=== PATIENT | female | born 1955 | race Caucasian/White ===

== ENCOUNTER 2019-11-10 09:28 | Observation (INO) | payer BC ==
[2019-11-10] MEDS ORDERED: ASPIRIN 81 MG PO STA (09:45)
[2019-11-10 10:06] LABS: Basophils % (A) 1 %; Eosinophils # (A) 0.2 k/uL (0-0.7); Eosinophils % (A) 3 %; HCT 44.4 % (34.0-46.0); Lymphocytes # (A) 1.6 k/uL (1.0-4.8); Lymphocytes % (A) 28 %; MCH 30.5 pg (25.0-35.0); MCHC 33.8 g/dL (31.0-37.0); MCV 90.3 fL (80.0-100.0); Mean Platelet Volume 7.5; Monocytes # (A) 0.4 k/uL (0-1.0); Monocytes % (A) 6 %; Neutrophils # (A) 3.5 k/uL (1.3-7.7); Neutrophils % (A) 60 %; Platelet Count 205 k/uL (150-450); RBC 4.92 m/uL (3.80-5.40); RDW 12.6 % (11.5-15.5); WBC 5.9 k/uL (3.8-10.6)
--- NOTE | 2019-11-10 10:09 | ED ---
Chest Pain HPI - General Chief Complaint: Chest Pain Stated Complaint: chest pain Time Seen by Provider: 11/10/19 09:37 Source: patient, RN notes reviewed Mode of arrival: ambulatory Limitations: no limitations - History of Present Illness Initial Comments: 64-year-old female presents emergency Department chief complaint of chest pain or shortness of breath. Patient states that she woke up this morning weak,rundown. Patient states that she started walking around became very dyspneic states that she started having chest pain and pressure. Patient states that symptoms lasted approximately 30 minutes. Patient states they have now resolved. She doesn't that she had a heart cath 9 years ago with no acute findings. No history of hyperlipidemia diabetes hypertension. Patient states she did have slight nausea. Patient offers no complaints. Patient does take Synthroid for hypo-thyroidism. - Related Data Allergies Allergy/AdvReac Type Severity Reaction Status Date / Time ibuprofen Allergy Nausea & Verified 11/10/19 09:33 Vomiting Review of Systems ROS Statement: Those systems with pertinent positive or pertinent negative responses have been documented in the HPI. ROS Other: All systems not noted in ROS Statement are negative. Past Medical History Past Medical History: Thyroid Disorder History of Any Multi-Drug Resistant Organisms: None Reported Past Surgical History: Joint Replacement, Orthopedic Surgery Past Psychological History: No Psychological Hx Reported Smoking Status: Never smoker Past Alcohol Use History: Occasional Past Drug Use History: None Reported General Exam Limitations: no limitations General appearance: alert, in no apparent distress Head exam: Present: atraumatic, normocephalic, normal inspection Eye exam: Present: normal appearance, PERRL, EOMI. Absent: scleral icterus, conjunctival injection, periorbital swelling ENT exam: Present: normal exam, normal oropharynx, mucous membranes moist Neck exam: Present: normal inspection, full ROM. Absent: tenderness, meningismus, lymphadenopathy Respiratory exam: Present: normal lung sounds bilaterally. Absent: respiratory distress, wheezes, rales, rhonchi, stridor Cardiovascular Exam: Present: regular rate, normal rhythm, normal heart sounds. Absent: systolic murmur, diastolic murmur, rubs, gallop, clicks GI/Abdominal exam: Present: soft, normal bowel sounds. Absent: distended, tenderness, guarding, rebound, rigid Back exam: Absent: CVA tenderness (R), CVA tenderness (L) Neurological exam: Present: alert, oriented X3 Skin exam: Present: warm, dry, intact, normal color. Absent: rash Course Vital Signs 11/10/19 11/10/19 11/10/19 09:31 09:54 09:57 Temperature 97.7 F Pulse Rate 53 L 55 L Pulse Rate [ 62 Director Immunology ] Respiratory 18 16 Rate Blood Pressure 128/79 141/81 O2 Sat by Pulse 99 100 Oximetry Chest Pain MDM - MDM 62-year-old presented for chest pain. Patient symptoms resolved prior arrival though she developed some symptoms. Patient lab, EKG reviewedabnormality. Patient be admitted for cardiac observation with cardiology consult. Disposition Clinical Impression: Chest pain Disposition: ADMITTED IP TO THIS HOSP Condition: Stable Referrals: Izzy Mcintosh DO [Primary Care Provider] - 1-2 days
--- NOTE | 2019-11-10 10:10 | XR ---
EXAMINATION TYPE: XR chest 2V DATE OF EXAM: 11/10/2019 COMPARISON: NONE HISTORY: Chest pain. TECHNIQUE: Frontal and lateral views of the chest are obtained. FINDINGS: There is no focal air space opacity, pleural effusion, or pneumothorax seen. The cardiac silhouette size is within normal limits. Multilevel spurring of thoracic spine. Overlying EKG leads a re seen. IMPRESSION: No acute cardiopulmonary process.
[2019-11-10 10:15] LABS: ALT 13 U/L (4-34); AST 22 U/L (14-36); African American GFR (CKD) >90 (>60 ml/min/1.73 sqM); Albumin 4.3 g/dL (3.5-5.0); Alkaline Phosphatase 66 U/L (38-126); Anion Gap 6 mmol/L; Blood Urea Nitrogen 10 mg/dL (7-17); Calcium 9.2 mg/dL (8.4-10.2); Carbon Dioxide 27 mmol/L (22-30); Chloride 105 mmol/L (98-107); Glucose 87 mg/dL (74-99); Magnesium 2.2 mg/dL (1.6-2.3); Non-African American GFR(CKD) >90 (>60 ml/min/1.73 sqM); Potassium 4.1 mmol/L (3.5-5.1); Sodium 138 mmol/L (137-145); Total Bilirubin 1.1 mg/dL (0.2-1.3)
[2019-11-10 10:19] LABS: D-Dimer 0.25 mg/L FEU (<0.60); Partial Thromboplastin Time 24.2 sec (22.0-30.0)
[2019-11-10] MEDS ORDERED: NITROGLYCERIN SL TABS 0.4 MG TAB SUBLINGUAL PRN (11:23)
[2019-11-10] MEDS ORDERED: HEPARIN SODIUM,PORCINE 5,000 UNIT/ML 1 ML VIAL IV ONE (11:23)
[2019-11-10] MEDS ORDERED: HEPARIN SODIUM,PORCINE 5,000 UNIT/ML 1 ML VIAL IV PRN (11:23)
[2019-11-10] MEDS ORDERED: HEPARIN SOD,PORK IN 0.45% NACL 25,000 UNIT in 0.45% NACL 1 250ML.BAG IV SCH (11:30)
--- NOTE | 2019-11-10 13:29 | P.CRDCN ---
History of Present Illness Consult date: 11/10/19 History of present illness: CHIEF COMPLAINT: chest pain HISTORY OF PRESENT ILLNESS: This is a 64-year old female with a past medical history significant for hypothyroidism. Patient does not follow in the office with a chip washer. We have been asked to see the patient in consultation for chest pain. Patient examined at the bedside. Patient states she woke up this morning with midsternal chest pain. She describes it as a dull ache. She states she initially thought maybe she slept wrong and did some stretches in the bed. She states she continued with her morning routine and noticed the pain did not go away. She denies radiation to her jaw or arm. She denies shortness of breath. Denies nausea or vomiting. Denies lightheadedness or dizziness. She reports feel weak this morning as well. She reports having a cardiac cath in 2010 at [facility] and did not require any stents. DIAGNOSTICS: EKG reveals sinus bradycardia Chest xray negative for acute process. Laboratory data: WBC 5.9. Hemoglobin 15.0. platelet count 205. d-dimer 0.25. Sodium 138. Potassium 4.1. BUN 10. Creatinine 0.61. Magnesium 2.2. troponin negative 2. BNP 115 Current home cardiac medications include: none REVIEW OF SYSTEMS: At the time of my exam: CONSTITUTIONAL: Denies fever or chills. HEENT: Denies blurred vision, vision changes, or eye pain. Denies hemoptysis CARDIOVASCULAR: Denies chest pain, orthopnea, PND or palpitations RESPIRATORY: No shortness of breath. GASTROINTESTINAL: Denies abdominal pain. Denies nausea or vomiting. HEMATOLOGIC: Denies bleeding disorders. GENITOURINARY: Denies any blood in urine. SKIN: Denies pruitis. Denies rash. PHYSICAL EXAM: VITAL SIGNS: Reviewed. GENERAL: Well-developed in no acute distress. HEENT: Head is normocephalic. Pupils are equal, round. Sclerae anicteric. Mucous membranes of the mouth are moist. Neck supple. No JVD or thyromegaly LUNGS: Respirations even and unlabored. Lungs essentially clear to auscultation bilaterally. HEART: Regular rate and rhythm. S1 and S2 heard. ABDOMEN: Soft. Nondistended. Nontender. EXTREMITIES: Normal range of motion. No clubbing or cyanosis. Peripheral pulses intact. No lower extremity edema NEUROLOGIC: Awake and alert. Oriented x 3. ASSESSMENT: Chest pain Hypothyroidism Obesity: BMI 30.5 History of nicotine dependence, in remission PLAN: An acute coronary event has been ruled out Decrease aspirin to 81mg daily Discontinue IV heparin Obtain 2D echo to assess cardiac structure and function Obtain cath report from [facility] Reshma NPO at midnight. Possible stress test tomorrow. Nurse practitioner note has been reviewed by physician. Signing provider agrees with the documented findings, assessment, and plan of care. Past Medical History Past Medical History: Chest Pain / Angina, Eye Disorder, GERD/Reflux, Osteoarthritis (OA), Thyroid Disorder Additional Past Medical History / Comment(s): Gastric ulcer, arthritis in mul tiple joints/needs R knee replacement, hypothyroid, bronchitis, macular degeneration R eye, UTIs. History of Any Multi-Drug Resistant Organisms: None Reported Past Surgical History: Heart Catheterization, Joint Replacement, Orthopedic Surgery Additional Past Surgical History / Comment(s): 2010 cardiac cath at [facility], R rotator cuff repair, R knee arthroscopy/meniscus, D&C, EGD, colonoscopy. Past Anesthesia/Blood Transfusion Reactions: Motion Sickness, Postoperative Nausea & Vomiting (PONV) Additional Past Anesthesia/Blood Transfusion Reaction / Comment(s): Pt has clausterphobia Smoking Status: Former smoker - Past Family History Father Family Medical History: Dementia Additional Family Medical History / Comment(s): Father is . Mother Family Medical History: Coronary Artery Disease (CAD), Diabetes Mellitus Additional Family Medical History / Comment(s): Mother is . Medications and Allergies Home Medications Medication Instructions Recorded Confirmed Type Glucosamine/Chondr Luis A Sod [Osteo 1 tab PO DAILY 11/10/19 11/10/19 History Bi-Flex Caplet] Levothyroxine Sodium [Synthroid] 112 mcg PO MOTUWETHFRSA 11/10/19 11/10/19 History Levothyroxine Sodium [Synthroid] 168 mcg PO LUIS 11/10/19 11/10/19 History Vit C/E/Zn/Coppr/Lutein/Zeaxan 1 cap PO DAILY 11/10/19 11/10/19 History [Preservision Areds 2 Softgel] Allergies Allergy/AdvReac Type Severity Reaction Status Date / Time ibuprofen Allergy Nausea & Verified 11/10/19 09:33 Vomiting Physical Exam Vitals: Vital Signs Temp Pulse Pulse Resp BP BP Pulse Ox 11/10/19 12:15 98 F 58 L 16 121/76 97 11/10/19 12:02 57 L 18 120/84 100 11/10/19 09:57 55 L 16 141/81 100 11/10/19 09:54 62 11/10/19 09:31 97.7 F 53 L 18 128/79 99 Intake and Output 11/09/19 11/10/19 11/10/19 22:59 06:59 14:59 Other: Voiding Method Toilet Weight 88.451 kg Results 11/10/19 09:56 11/10/19 09:56 Cardiac Enzymes 11/10/19 11/10/19 11/10/19 Range/Units 09:56 09:56 12:20 AST 22 (14-36) U/L Troponin I <0.012 <0.012 (0.000-0.034) ng/mL Coagulation 11/10/19 Range/Units 09:56 PT 10.0 (9.0-12.0) sec APTT 24.2 (22.0-30.0) sec CBC 11/10/19 Range/Units 09:56 WBC 5.9 (3.8-10.6) k/uL RBC 4.92 (3.80-5.40) m/uL Hgb 15.0 (11.4-16.0) gm/dL Hct 44.4 (34.0-46.0) % Plt Count 205 (150-450) k/uL Comprehensive Metabolic Panel 11/10/19 Range/Units 09:56 Sodium 138 (137-145) mmol/L Potassium 4.1 (3.5-5.1) mmol/L Chloride 105 (98-107) mmol/L Carbon Dioxide 27 (22-30) mmol/L BUN 10 (7-17) mg/dL Creatinine 0.61 (0.52-1.04) mg/dL Glucose 87 (74-99) mg/dL Calcium 9.2 (8.4-10.2) mg/dL AST 22 (14-36) U/L ALT 13 (4-34) U/L Alkaline Phosphatase 66 (38-126) U/L Total Protein 7.0 (6.3-8.2) g/dL Albumin 4.3 (3.5-5.0) g/dL Current Medications Generic Name Dose Route Start Last Admin Trade Name Freq PRN Reason Stop Dose Admin Heparin Sodium (Porcine) 0 unit 11/10/19 11:23 Heparin Sodium,Porcine 5,000 Unit/Ml 1 Ml Vial IV Q6HR PRN Low PTT Protocol Nitroglycerin 0.4 mg 11/10/19 11:23 Nitroglycerin Sl Tabs 0.4 Mg Tab SUBLINGUAL Q5M PRN Chest Pain Intake and Output 11/09/19 11/10/19 11/10/19 22:59 06:59 14:59 Other: Voiding Method Toilet Weight 88.451 kg Patient Weight 11/11/19 06:59 Weight 88.451 kg 11/10/19 09:56 11/10/19 09:56
--- NOTE | 2019-11-10 17:41 | ECHOF ---
Referral Reason:chest pain MEASUREMENTS -------- HEIGHT: 170.2 cm WEIGHT: 88.5 kg BP: RVIDd: 2.9 cm (< 3.3) IVSd: 0.9 cm (0.6 - 1.1) LVIDd: 4.6 cm (3.9 - 5.3) LVPWd: 1.0 cm (0.6 - 1.1) IVSs: 1.6 cm LVIDs: 3.1 cm LVPWs: 1.3 cm Ao Diam: 2.6 cm (2.0 - 3.7) AV Cusp: 2.2 cm (1.5 - 2.6) LA Diam: 3.1 cm (2.7 - 3.8) MV EXCURSION: 12.396 mm (> 18.000) MV EF SLOPE: 95 mm/s (70 - 150) EPSS: 1.1 cm MV E Godwin: 0.65 m/s MV DecT: 126 ms MV A Godwin: 0.39 m/s MV E/A Ratio: 1.65 RAP: 5.00 mmHg RVSP: 16.37 mmHg FINDINGS -------- This was a technically good study. The left ventricular size is normal. Left ventricular wall thickness is normal. Overall left vent ricular systolic function is normal with, an EF between 55 - 60 %. The right ventricle is normal in size. The left atrial size is normal. The right atrial size is normal. The aortic valve is trileaflet and appears structurally normal. The mitral valve is normal. Mild mitral regurgitation is present. The tricuspid valve appears structurally normal. Trace tricuspid regurgitation present. Right willian tricular systolic pressure is normal at < 35 mmHg. There is no pulmonic regurgitation present. The aortic root size is normal. Normal inferior vena cava with normal inspiratory collapse consistent with estimated right atrial pre ssure of 5 mmHg. There is no pericardial effusion. CONCLUSIONS -------- 1. The left ventricular size is normal. 2. Left ventricular wall thickness is normal. 3. Overall left ventricular systolic function is normal with, an EF between 55 - 60 %. 4. Mild mitral regurgitation is present. 5. Trace tricuspid regurgitation present. 6. There is no pericardial effusion. CONSUMER MARKETING MANAGER: Valentina Lawson RDCS
[2019-11-11 06:58] LABS: Mean Platelet Volume 7.5; Platelet Count 178 k/uL (150-450)
[2019-11-11 07:06] LABS: Cholesterol 175 mg/dL (<200); HDL Cholesterol 56 mg/dL (40-60); LDL Cholesterol,Calculated 100 mg/dL (0-99); Triglycerides 97 mg/dL (<150)
[2019-11-11 07:56] VITALS: RESP 16; TEMP 97.6
[2019-11-11] MEDS ORDERED: ACETAMINOPHEN TAB 325 MG TAB PO PRN (08:25)
[2019-11-11] MEDS ORDERED: DOBUTamine DRIP for NUC MED 500 MG in DEXTROSE/WATER 1 250ML.BAG IV ONE (08:30)
[2019-11-11] MEDS ORDERED: ASPIRIN 325 MG TAB PO SCH (09:00)
[2019-11-11] MEDS ORDERED: ASPIRIN 81 MG PO SCH (09:00)
--- NOTE | 2019-11-11 12:55 | P.HPIM ---
History of Present Illness 64-year-old pleasant female came in with compensative chest pain in the midsternal area started today morning which is a dull aching kind of pain. Patient the denied any shortness of breath lightheadedness diaphoresis nausea patient says she is chest pain-free after that episode patient pain lasted for only a few minutes. Denied any radiation. Chest chest pressure-like sensation is [id number] chest pain is nonpleuritic not associated with food food patient had a stress test about 8 years ago which was within normal limits as per the patient patient to did have cardiac cath in 2010 which did not require any stents. Review of Systems REVIEW OF SYSTEMS: CONSTITUTIONAL: No fever, no malaise, no fatigue. HEENT: No recent visual problems or hearing problems. Denied any sore throat. CARDIOVASCULAR: No orthopnea, PND, no palpitations, no syncope. PULMONARY: No shortness of breath, no cough, no hemoptysis. GASTROINTESTINAL: No diarrhea, no nausea, no vomiting, no abdominal pain. NEUROLOGICAL: No headaches, no weakness, no numbness. HEMATOLOGICAL: Denies any bleeding or petechiae. GENITOURINARY: Denies any burning micturition, frequency, or urgency. MUSCULOSKELETAL/RHEUMATOLOGICAL: Denies any joint pain, swelling, or any muscle pain. ENDOCRINE: Denies any polyuria or polydipsia. The rest of the 14-point review of systems is negative. Past Medical History Past Medical History: Chest Pain / Angina, Eye Disorder, GERD/Reflux, Os teoarthritis (OA), Thyroid Disorder Additional Past Medical History / Comment(s): Gastric ulcer, arthritis in multiple joints/needs R knee replacement, hypothyroid, bronchitis, macular degeneration R eye, UTIs. History of Any Multi-Drug Resistant Organisms: None Reported Past Surgical History: Heart Catheterization, Joint Replacement, Orthopedic Surgery Additional Past Surgical History / Comment(s): 2011 cardiac cath at [facility], R rotator cuff repair, R knee arthroscopy/meniscus, D&C, EGD, colonoscopy. Past Anesthesia/Blood Transfusion Reactions: Motion Sickness, Postoperative Nausea & Vomiting (PONV) Additional Past Anesthesia/Blood Transfusion Reaction / Comment(s): Pt has clausterphobia Smoking Status: Former smoker - Past Family History Father Family Medical History: Dementia Additional Family Medical History / Comment(s): Father is . Mother Family Medical History: Coronary Artery Disease (CAD), Diabetes Mellitus Additional Family Medical History / Comment(s): Mother is . Medications and Allergies Home Medications Medication Instructions Recorded Confirmed Type Glucosamine/Chondr Luis A Sod [Osteo 1 tab PO DAILY 11/10/19 11/10/19 History Bi-Flex Caplet] Levothyroxine Sodium [Synthroid] 112 mcg PO MOTUWETHFRSA 11/10/19 11/10/19 History Levothyroxine Sodium [Synthroid] 168 mcg PO LUIS 11/10/19 11/10/19 History Vit C/E/Zn/Coppr/Lutein/Zeaxan 1 cap PO DAILY 11/10/19 11/10/19 History [Preservision Areds 2 Softgel] Allergies Allergy/AdvReac Type Severity Reaction Status Date / Time ibuprofen Allergy Nausea & Verified 11/10/19 09:33 Vomiting Physical Exam Vitals: Vital Signs Temp Pulse Resp BP Pulse Ox 11/11/19 09:00 16 11/11/19 07:55 97.6 F 53 L 16 110/68 98 11/11/19 03:00 97.8 F 67 17 114/72 96 11/10/19 20:41 97.6 F 64 18 113/71 98 11/10/19 16:15 98.1 F 66 16 120/98 97 11/10/19 15:00 16 Intake and Output 11/10/19 11/11/19 11/11/19 22:59 06:59 14:59 Intake Total 320 Balance 320 Intake: Oral 320 Other: Voiding Method Toilet Toilet Toilet # Voids 1 3 1 PHYSICAL EXAMINATION: GENERAL: The patient is alert and oriented x3, not in any acute distress. Well developed, well nourished. HEENT: Pupils are round and equally reacting to light. EOMI. No scleral icterus. No conjunctival pallor. Normocephalic, atraumatic. No pharyngeal erythema. No thyromegaly. CARDIOVASCULAR: S1 and S2 present. No murmurs, rubs, or gallops. PULMONARY: Chest is clear to auscultation, no wheezing or crackles. ABDOMEN: Soft, nontender, nondistended, normoactive bowel sounds. No palpable organomegaly. MUSCULOSKELETAL: No joint swelling or deformity. EXTREMITIES: No cyanosis, clubbing, or pedal edema. NEUROLOGICAL: Gross neurological examination did not reveal any focal deficits. SKIN: No rashes. Results CBC & Chem 7: 11/11/19 06:36 11/10/19 09:56 Labs: Abnormal Lab Results - Last 24 Hours (Table) 11/10/19 11/11/19 Range/Units 12:20 06:36 APTT 127.9 H* (22.0-30.0) sec LDL Cholesterol, Calc 100 H (0-99) mg/dL Thrombosis Risk Factor Assmnt - Choose All That Apply Any of the Below Risk Factors Present?: Yes Each Factor Represents 1 point: Obesity (BMI >25) Other Risk Factors: Yes Each Risk Factor Represents 2 Points: Age 61-74 years Other congenital or acquired thrombophilia - If yes, enter type in comment: No Thrombosis Risk Factor Assessment Total Risk Factor Score: 3 Thrombosis Risk Factor Assessment Level: Moderate Risk Assessment and Plan Plan: -Chest pain: We will rule out acute coronary syndromes, unstable angina. Patient was a evaluated by cardiology and patient is undergoing stress test if that's negative patient will be discharged today. -Hypothyroidism -Obesity -Gastroesophageal reflux disease Plan: Ruled out acute coronary syndromes patient will undergo stress test if that's negative will be discharged today
[2019-11-11] MEDS ORDERED: LEVOTHYROXINE 112 MCG TAB PO SCH (13:15)
[2019-11-11 15:31] VITALS: BP 117/72; PULSE 68
--- NOTE | 2019-11-12 09:49 | ECHOS ---
STRESS ECHOCARDIOGRAM DOBUTAMINE STRESS ECHOCARDIOGRAM: LUMASON: Vial INDICATIONS: Chest pain. MEDICATIONS: BASELINE HEART RATE: 63 BASELINE BLOOD PRESSURE: 102/59 MAXIMUM HEART RATE: 143 MAXIMUM BLOOD PRESSURE: 213/103 85% MPHR: 134 100% MPHR: 158 METS: N/A MAXIMUM STAGE REACHED: 30 mcg TOTAL EXERCISE TIME: 8:59 CLINICAL INFORMATION: Baseline EKG shows sinus rhythm, normal axis, normal intervals. The patient was given intravenous dobutamine over a period of 9 minutes, achieving 85% of predicted maximal heart rate without chest pain or diagnostic ST-segment depression. Baseline echo shows normal left ventricular size, wall motion and systolic function. Post dobutamine infusion there is normal hyperdynamic response of all segments of myocardium noted. CONCLUSIONS: 1. Negative stress test by EKG criteria. 2. Negative dobutamine echo. MMODL / IJN: [id number] /
== END 2019-11-11 17:44 | disposition home or self-care (01) ==
LOC: EC 09:28 → 3NCARDOBS 10:55
PROVIDERS: ADMIT Hospitalist; ATTEND Hospitalist
DX: R07.89 Other chest pain (principal); R07.2 Precordial pain; R53.1 Weakness; R06.02 Shortness of breath; R06.00 Dyspnea, unspecified; K21.9 Gastro-esophageal reflux disease without esophagitis; M19.90 Unspecified osteoarthritis, unspecified site; E03.9 Hypothyroidism, unspecified; H35.30 Unspecified macular degeneration; E66.9 Obesity, unspecified; F17.201 Nicotine dependence, unspecified, in remission; Z68.30 Body mass index [BMI] 30.0-30.9, adult; Z87.09 Personal history of other diseases of the respiratory system; Z87.440 Personal history of urinary (tract) infections; Z96.651 Presence of right artificial knee joint; Z87.11 Personal history of peptic ulcer disease; Z79.899 Other long term (current) drug therapy; Z79.890 Hormone replacement therapy; Z88.8 Allergy status to other drugs, medicaments and biological substances; Z82.49 Family history of ischemic heart disease and other diseases of the circulatory system; Z83.3 Family history of diabetes mellitus; Z81.8 Family history of other mental and behavioral disorders; R11.0 Nausea
CPT/HCPCS: 93005 ×2; 96366; 96376; 96365; 99285; 36415; 93306; 93351; 85379; 83880; 80061; 80053; 83690; 83735; 84484; 85025; 85049; 85610; 85730 ×2; 71046; G0378 ×2; J1250; J1644 ×2

== ENCOUNTER → 2023-12-11 | Outpatient (CLI) | payer BC ==
[2023-12-11 15:26] LABS: Basophils # (A) 0.03 X 10*3/uL (0.00-0.10); Basophils % (A) 0.4 %; Eosinophils # (A) 0.18 X 10*3/uL (0.04-0.35); Eosinophils % (A) 2.5 %; HCT 46.4 % (37.2-46.3); HGB 14.9 g/dL (12.0-15.0); Lymphocytes # (A) 1.85 X 10*3/uL (0.90-5.00); Lymphocytes % (A) 25.7 %; MCH 29.9 pg (27.0-32.0); MCHC 32.1 g/dL (32.0-37.0); MCV 93.2 FL (80.0-97.0); Mean Platelet Volume 10.3 FL (9.5-12.2); Monocytes # (A) 0.58 X 10*3/uL (0.20-1.00); Monocytes % (A) 8.1 %; NRBC Per 100 WBC 0 X 10*3/uL (0.00-0.01); Neutrophils # (A) 4.53 X 10*3/uL (1.80-7.70); Platelet Count 246 X 10*3/uL (140-440); RBC 4.98 X 10*6/uL (4.10-5.20); RDW 13.3 % (11.5-14.5); WBC 7.19 X 10*3/uL (4.50-10.00)
[2023-12-11 16:29] LABS: ALT 13 U/L (8-44); AST 19 U/L (13-35); Albumin 4.3 g/dL (3.8-4.9); Albumin/Globulin Ratio 1.72 Ratio (1.60-3.17); Alkaline Phosphatase 81 U/L (41-126); BUN/Creat Ratio 11.83 Ratio (12.00-20.00); Blood Urea Nitrogen 7.1 mg/dL (9.0-27.0); Calcium 9.4 mg/dL (8.7-10.3); Carbon Dioxide 26.6 mmol/L (21.6-31.8); Chloride 102 mmol/L (96-109); Chol/HDL Ratio 3.68 Ratio; Globulin 2.5 g/dL (1.6-3.3); Glucose 90 mg/dL (70-110); Sodium 139 mmol/L (135-145); Total Bilirubin 0.8 mg/dL (0.3-1.2); Total Protein 6.8 g/dL (6.2-8.2)
== END | disposition home or self-care (01) ==
LOC: LABWHC1 09:00
PROVIDERS: ATTEND Physician Assistant
CPT/HCPCS: 36415; 80053; 80061; 83036; 84439; 84443; 85025

== ENCOUNTER 2024-02-28 12:23 | Emergency (ER) | payer MEDICARE ==
[2024-02-28 12:31] VITALS: RESP 18
--- NOTE | 2024-02-28 13:32 | ED ---
General Adult HPI - General Chief complaint: Chest Pain Stated complaint: tightness in chest/dry mouth/nausea Time Seen by Provider: 02/28/24 12:30 Source: patient, RN notes reviewed, old records reviewed Mode of arrival: ambulatory Limitations: no limitations - History of Present Illness Initial comments: This is a 68-year-old female who presents to the emergency department stating that for a week she has been having some mild chest tightness on and off. Patient states this morning while she was in the shower she started getting the chest tightness again and some a little electrical feeling. Patient states she was very dry in the mouth at that point and felt mildly nauseous. Patient states the symptoms have resolved at this point. Patient denies any actual chest pain. Patient denies short of breath or recent fever chills or cough. Patient has any swelling to legs or calf tenderness. - Related Data Home Medications Medication Instructions Recorded Confirmed Levothyroxine Sodium [Synthroid] 56 mcg PO LYNCH 11/10/19 02/28/24 Levothyroxine Sodium [Synthroid] 112 mcg PO [id number] 11/10/19 02/28/24 Allergies Allergy/AdvReac Type Severity Reaction Status Date / Time ibuprofen Allergy Nausea & Verified 02/28/24 13:25 Vomiting Review of Systems ROS Statement: Those systems with pertinent positive or pertinent negative responses have been documented in the HPI. ROS Other: All systems not noted in ROS Statement are negative. Past Medical History Past Medical History: Chest Pain / Angina, Eye Disorder, GERD/Reflux, Osteoarthritis (OA), Thyroid Disorder Additional Past Medical History / Comment(s): Gastric ulcer, arthritis in multiple joints/needs R knee replacement, hypothyroid, bronchitis, macular degeneration R eye, UTIs. History of Any Multi-Drug Resistant Organisms: None Reported Past Surgical History: Heart Catheterization, Joint Replacement, Orthopedic Surgery Additional Past Surgical History / Comment(s): 2011 cardiac cath at [facility], R rotator cuff repair, R knee arthroscopy/meniscus, D&C, EGD, colonoscopy. Past Anesthesia/Blood Transfusion Reactions: Motion Sickness, Postoperative Nausea & Vomiting (PONV) Additional Past Anesthesia/Blood Transfusion Reaction / Comment(s): Pt has clausterphobia Past Psychological History: No Psychological Hx Reported Smoking Status: Former smoker Past Alcohol Use History: None Reported Past Drug Use History: None Reported - Past Family History Father Family Medical History: Dementia Additional Family Medical History / Comment(s): Father is . Mother Family Medical History: Coronary Artery Disease (CAD), Diabetes Mellitus Additional Family Medical History / Comment(s): Mother is . General Exam - General Exam Comments Initial Comments: GENERAL: Patient is well-developed and well-nourished. Patient is nontoxic and well- hydrated and is in no acute distress. ENT: Neck is soft and supple. No significant lymphadenopathy is noted. Oropharynx is clear. Moist mucous membranes. Neck has full range of motion without eliciting any pain. EYES: The sclera were anicteric and conjunctiva were pink and moist. Extraocular movements were intact and pupils were equal round and reactive to light. Eye lids were unremarkable. PULMONARY: Unlabored respirations. Good breath sounds bilaterally. No audible rales rhonchi or wheezing was noted. CARDIOVASCULAR: There is a regular rate and rhythm without any murmurs gallops or rubs. ABDOMEN: Soft and nontender with normal bowel sounds. SKIN: Skin is clear with no lesions or rashes and otherwise unremarkable. NEUROLOGIC: Patient is alert and oriented x3. Cranial nerves II through XII are grossly intact. Motor and sensory are also intact. Normal speech, volume and content. Symmetrical smile. MUSCULOSKELETAL: Normal extremities with adequate strength and full range of motion. No lower extremity swelling or edema. No calf tenderness. LYMPHATICS: No significant lymphadenopathy is noted PSYCHIATRIC: Normal psychiatric evaluation. Limitations: no limitations Course Vital Signs 02/28/24 02/28/24 02/28/24 12:27 13:58 14:10 Temperature 98.0 F Pulse Rate 60 66 Pulse Rate [ 66 Launderer Hand ] Respiratory 18 16 Rate Blood Pressure 148/78 112/68 Blood Pressure [Right Arm Sitting] Blood Pressure [Right Arm Standing] Blood Pressure [Right Arm Supine] O2 Sat by Pulse 98 96 Oximetry 02/28/24 02/28/24 02/28/24 14:25 14:45 14:47 Temperature Pulse Rate 67 Pulse Rate [ 62 63 Launderer Hand ] Respiratory 18 Rate Blood Pressure 131/62 Blood Pressure 137/73 [Right Arm Sitting] Blood Pressure [Right Arm Standing] Blood Pressure 134/69 [Right Arm Supine] O2 Sat by Pulse 96 Oximetry 02/28/24 14:49 Temperature Pulse Rate Pulse Rate [ 72 Launderer Hand ] Respiratory Rate Blood Pressure Blood Pressure [Right Arm Sitting] Blood Pressure 130/77 [Right Arm Standing] Blood Pressure [Right Arm Supine] O2 Sat by Pulse Oximetry Medical Decision Making - Medical Decision Making EKG is interpreted by myself. EKG shows sinus bradycardia 59 bpm SC interval 174 QRS is 96 QT interval 396 QTc is 396. Patient's EKG shows no ST segment elevation or depression Was pt. sent in by a medical professional or institution (, [facility], HUMAN RESOURCES BENEFITS ADMINISTRATOR, urgent care, hospital, or senior care...) When possible be specific @ -No Did you speak to anyone other than the patient for history (EMS, parent, family, police, friend...)? What history was obtained from this source @ -No Did you review nursing and triage notes (agree or disagree)? Why? @ -I reviewed and agree with nursing and triage notes Were old charts reviewed (outside hosp., previous admission, EMS record, old EKG, old radiological studies, urgent care reports/EKG's, senior care records)? Report findings @ -No old charts were reviewed Differential Diagnosis? @ -Differential Chest Pain: Stable Angina, Unstable Angina, STEMI, NSTEMI Aortic Dissection, Pneumothorax, Musculoskeletal, Esophageal Spasm GERD, Cholecystitis, Pancreatitis, Zoster, this is not meant to be an all-inclusive list. EKG interpreted by me (3pts min.). @ -As above X-rays interpreted by me (1pt min.). @ -Chest x-ray shows no acute normality CT interpreted by me (1pt min.). @ -None done U/S interpreted by me (1pt. min.). @ -None done What testing was considered but not performed or refused? (CT, X-rays, U/S, labs)? Why? @ -None What meds were considered but not given or refused? Why? @ -None Did you discuss the management of the patient with other professionals ( professionals i.e. [facility] Jesus, HUMAN RESOURCES BENEFITS ADMINISTRATOR, lab, RT, psych nurse, social insurance analyst, outside production inspector, teacher, engineering officer, clinical case manager)? Give summary @ -No Was smoking cessation discussed for >3mins.? @ -No Was critical care preformed (if so, how long)? @ -No Were there social determinants of health that impacted care today? How? (Homelessness, low income, unemployed, alcoholism, drug addiction, transportation, low edu. Level, literacy, decrease access to med. care, retirement, rehab)? @ -No Was there de-escalation of care discussed even if they declined (Discuss DNR or withdrawal of care, Hospice)? DNR status @ -No What co-morbidities impacted this encounter? (DM, HTN, Smoking, COPD, CAD, Cancer, CVA, ARF, Chemo, Hep., AIDS, mental health diagnosis, sleep apnea, morbid obesity)? @ -None Was patient admitted / discharged? Hospital course, mention meds given and route, prescriptions, significant lab abnormalities, going to OR and other pertinent info. @ -Patient was not having any symptoms in the emergency department. Patient lab work all came back normal x-ray was normal patient would not want to follow-up w dorothy Gillespie as an outpatient. Patient is comfortable now and patient will be discharged Undiagnosed new problem with uncertain prognosis? @ -No Drug Therapy requiring intensive monitoring for toxicity (Heparin, Nitro, Insulin, Cardizem)? @ -No Were any procedures done? @ -No Diagnosis/symptom? @ -Chest tightness Acute, or Chronic, or Acute on Chronic? @ -Acute Uncomplicated (without systemic symptoms) or Complicated (systemic symptoms)? @ -Complicate Side effects of treatment? @ -No Exacerbation, Progression, or Severe Exacerbation? @ -No Poses a threat to life or bodily function? How? (Chest pain, [place], AL, pneumonia, PE, COPD, DKA, ARF, appy, cholecystitis, CVA, Diverticulitis, Homicidal, Suicidal, threat to staff... and all critical care pts) @ -No - Lab Data Result diagrams: 02/28/24 14:17 02/28/24 14:17 Lab Results 02/28/24 02/28/24 02/28/24 Range/Units 14:17 14:17 14:17 WBC 7.3 (3.8-10.6) k/uL RBC 5.04 (3.80-5.40) m/uL Hgb 15.3 (11.4-16.0) gm/dL Hct 45.7 (34.0-46.0) % MCV 90.6 (80.0-100.0) fL MCH 30.2 (25.0-35.0) pg MCHC 33.4 (31.0-37.0) g/dL RDW 13.0 (11.5-15.5) % Plt Count 236 (150-450) k/uL MPV 7.5 Neutrophils % 75 % Lymphocytes % 17 % Monocytes % 5 % Eosinophils % 1 % Basophils % 0 % Neutrophils # 5.5 (1.3-7.7) k/uL Lymphocytes # 1.3 (1.0-4.8) k/uL Monocytes # 0.4 (0-1.0) k/uL Eosinophils # 0.1 (0-0.7) k/uL Basophils # 0.0 (0-0.2) k/uL PT 10.9 (10.0-12.5) sec INR 1.0 (<1.2) APTT 25.2 (22.0-30.0) sec Sodium 135 L (137-145) mmol/L Potassium 4.2 (3.5-5.1) mmol/L Chloride 101 (98-107) mmol/L Carbon Dioxide 26 (22-30) mmol/L Anion Gap 8 mmol/L BUN 10 (7-17) mg/dL Creatinine 0.63 (0.52-1.04) mg/dL Est GFR (CKD-EPI)AfAm >90 (>60 ml/min/1.73 sqM) Est GFR (CKD-EPI)NonAf >90 (>60 ml/min/1.73 sqM) Glucose 93 (74-99) mg/dL Calcium 9.8 (8.4-10.2) mg/dL Magnesium 2.2 (1.6-2.3) mg/dL Total Bilirubin 0.9 (0.2-1.3) mg/dL AST 26 (14-36) U/L ALT 16 (4-34) U/L Alkaline Phosphatase 82 (38-126) U/L Troponin I (0.000-0.034) ng/mL Total Protein 7.6 (6.3-8.2) g/dL Albumin 4.7 (3.5-5.0) g/dL 02/28/24 Range/Units 14:17 WBC (3.8-10.6) k/uL RBC (3.80-5.40) m/uL Hgb (11.4-16.0) gm/dL Hct (34.0-46.0) % MCV (80.0-100.0) fL MCH (25.0-35.0) pg MCHC (31.0-37.0) g/dL RDW (11.5-15.5) % Plt Count (150-450) k/uL MPV Neutrophils % % Lymphocytes % % Monocytes % % Eosinophils % % Basophils % % Neutrophils # (1.3-7.7) k/uL Lymphocytes # (1.0-4.8) k/uL Monocytes # (0-1.0) k/uL Eosinophils # (0-0.7) k/uL Basophils # (0-0.2) k/uL PT (10.0-12.5) sec INR (<1.2) APTT (22.0-30.0) sec Sodium (137-145) mmol/L Potassium (3.5-5.1) mmol/L Chloride (98-107) mmol/L Carbon Dioxide (22-30) mmol/L Anion Gap mmol/L BUN (7-17) mg/dL Creatinine (0.52-1.04) mg/dL Est GFR (CKD-EPI)AfAm (>60 ml/min/1.73 sqM) Est GFR (CKD-EPI)NonAf (>60 ml/min/1.73 sqM) Glucose (74-99) mg/dL Calcium (8.4-10.2) mg/dL Magnesium (1.6-2.3) mg/dL Total Bilirubin (0.2-1.3) mg/dL AST (14-36) U/L ALT (4-34) U/L Alkaline Phosphatase (38-126) U/L Troponin I <0.012 (0.000-0.034) ng/mL Total Protein (6.3-8.2) g/dL Albumin (3.5-5.0) g/dL Disposition Clinical Impression: Chest tightness Disposition: HOME SELF-CARE Condition: Good Instructions (If sedation given, give patient instructions): Chest Pain (ED) Is patient prescribed a controlled substance at d/c from ED?: No Referrals: Сергей Gillespie MD [Primary Care Provider] - 1-2 days Time of Disposition: 15:17
[2024-02-28] MEDS: ASPIRIN 81 MG PO STA (13:57)
[2024-02-28] MEDS: NITROGLYCERIN OINT 1 INCH/GM PACKET TOPICAL STA (13:58)
[2024-02-28] MEDS: SODIUM CHLORIDE 0.9% 500 ML 500 ML IV STA (14:28)
--- NOTE | 2024-02-28 14:36 | XR ---
EXAMINATION TYPE: XR chest 2V DATE OF EXAM: 02/28/2024 1:48 PM COMPARISON: Chest radiographs from 11/02/2019 CLINICAL INDICATION: Female, 68 years old with history of Chest Pain; TECHNIQUE: XR chest 2V Frontal and lateral views of the chest. FINDINGS: Lungs/Pleura: There is no evidence of pleural effusion, focal consolidation, or pneumothorax. Pulmonary vascularity: Unremarkable. Heart/mediastinum: Cardiomediastinal silhouette is unremarkable. Musculoskeletal: No acute osseous pathology. IMPRESSION: No acute cardiopulmonary disease/process. [facility], , 02/28/2024 2:33 PM
[2024-02-28 14:46] LABS: Basophils % (A) 0 %; Eosinophils # (A) 0.1 k/uL (0-0.7); Eosinophils % (A) 1 %; HCT 45.7 % (34.0-46.0); HGB 15.3 gm/dL (11.4-16.0); Lymphocytes # (A) 1.3 k/uL (1.0-4.8); Lymphocytes % (A) 17 %; MCH 30.2 pg (25.0-35.0); MCHC 33.4 g/dL (31.0-37.0); MCV 90.6 fL (80.0-100.0); Mean Platelet Volume 7.5; Monocytes # (A) 0.4 k/uL (0-1.0); Monocytes % (A) 5 %; Neutrophils # (A) 5.5 k/uL (1.3-7.7); Neutrophils % (A) 75 %; Platelet Count 236 k/uL (150-450); RBC 5.04 m/uL (3.80-5.40); WBC 7.3 k/uL (3.8-10.6)
[2024-02-28 14:53] LABS: ALT 16 U/L (4-34); AST 26 U/L (14-36); African American GFR (CKD) >90 (>60 ml/min/1.73 sqM); Albumin 4.7 g/dL (3.5-5.0); Alkaline Phosphatase 82 U/L (38-126); Anion Gap 8 mmol/L; Blood Urea Nitrogen 10 mg/dL (7-17); Calcium 9.8 mg/dL (8.4-10.2); Carbon Dioxide 26 mmol/L (22-30); Chloride 101 mmol/L (98-107); Glucose 93 mg/dL (74-99); Magnesium 2.2 mg/dL (1.6-2.3); Non-African American GFR(CKD) >90 (>60 ml/min/1.73 sqM); Potassium 4.2 mmol/L (3.5-5.1); Sodium 135 mmol/L (137-145); Total Bilirubin 0.9 mg/dL (0.2-1.3); Total Protein 7.6 g/dL (6.3-8.2)
[2024-02-28 14:54] LABS: Partial Thromboplastin Time 25.2 sec (22.0-30.0); Prothrombin Time 10.9 sec (10.0-12.5)
[2024-02-28 15:17] LABS: Influenza A Not Detected (Not Detectd); Influenza B Not Detected (Not Detectd); RSV Not Detected (Not Detectd)
[2024-02-28 15:41] VITALS: BP 121/62; PULSE 64; TEMP 98.6
== END 2024-02-28 15:45 | disposition home or self-care (01) ==
LOC: EC 12:23
DX: R07.89 Other chest pain (principal); Z87.891 Personal history of nicotine dependence; Z88.6 Allergy status to analgesic agent
CPT/HCPCS: 36415; 71046; 80053; 83735; 84484; 85025; 85610; 85730; 87636; 93005; 96360; 99285